=== PATIENT | male | born 1960 | race Caucasian/White ===

== ENCOUNTER 2018-01-15 12:02 | Emergency (ER) | payer SELFPAY ==
[2018-01-15] MEDS ORDERED: Sodium Chloride 0.9% 1,000 ML IV SCH (12:15)
--- NOTE | 2018-01-15 12:17 | ED PDOC ---
HPI:STROKE - Time Time: 12:12 - Historian Historian: Patient, Family - Chief Complaint Chief Complaint: Slurred speech - Onset Date: 01/09/18 Time: 12:00 - Timing Timing: Currently Symptomatic - Location Location: Speech - TPA Positive for Contraindication: Yes Reason tPA is not being Administered: out of window - Notes: Notes:: Pt. had shortness of breath for 7 days. Today he woke up at 430am with dizziness like the room spinning. His daughter called to get something and he was slurring his words so EMS called and brought to the ER. Pt. was in afib per EMS so cardizem given. NIHSS Stroke Scale - Date/Time Evaluation Performed Date Performed: 01/15/18 Time Performed: 12:12 When Was NIHSS Performed: Baseline - How Severe is the Stroke Level of Consciousness: 0=Alert LOC to Questions: 0=Both comments correct LOC to commands: 0=Obeys both correctly Best Gaze: 0=Normal Visual: 0=No visual loss Facial: 0=Normal Motor Arm - Left: 0=No drift Motor Arm - Right: 0=No drift Motor Leg - Left: 0=No drift Motor Leg - Right: 0=No drift Limb Ataxia: 0=Absent Sensory: 0=Normal Best Language: 0=No aphasia Dysarthia: 1=Mild to moderate slurring Extinction & Inattention (Neglect): 0=Normal, no object Score: 1 rTPA Inclusion/Exclusion - Refusal of Treatment Patient Refused Treatment: No - Inclusion Criteria for Altepase Patient is 18 years or Older: Yes The Clinical Diagnosis of Ischemic Stroke That is Causing a Potentially Disabling Neurological Deficit: No Time of Onset is Well Established to be Less Than 270 Minute Before Treatment Would Begin: No Risk/Benefit Discussed With Patient/Family Member Present: No Past Medical History Reviewed: Nursing Documentation, Vital Signs - Medical History PMH: No Chronic Diseases - Surgical History Surgical History: No Surg Hx - Family History Family History: States: Unknown Family Hx - Living Arrangements Living Arrangements: Alone - Home Medications Home Medications: Ambulatory Orders Medication Instructions Recorded No Known Home Med 01/15/18 - Allergies Allergies/Adverse Reactions: Allergies Allergy/AdvReac Type Severity Reaction Status Date / Time No Known Allergies Allergy Verified 01/15/18 12:07 Review of Systems ROS Statement: Except As Marked, All Systems Reviewed And Found Negative Respiratory: Positive for: Shortness of Breath Neurological: Positive for: Change in Speech, Dizziness Physical Exam - Reviewed Nursing Documentation Reviewed: Yes Vital Signs Reviewed: Yes - Physical Exam Appears: Positive for: Uncomfortable Head Exam: Positive for: ATRAUMATIC, NORMAL INSPECTION, NORMOCEPHALIC Skin: Positive for: Normal Color, Warm, DRY Eye Exam: Positive for: EOMI, Normal appearance, PERRL ENT: Positive for: Normal ENT Inspection. Negative for: Nasal Congestion, Pharyngeal Erythema Neck: Positive for: Normal, Painless ROM, Supple Cardiovascular/Chest: Positive for: Tachycardia Respiratory: Positive for: CNT, Normal Breath Sounds Gastrointestinal/Abdominal: Positive for: Normal Exam, Soft. Negative for: Tenderness Back: Positive for: Normal Inspection. Negative for: L CVA Tenderness, R CVA Tenderness Extremity: Positive for: Normal ROM. 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 Negative for: Motor/Sensory Deficits, Aphasia, Facial Droop - Laboratory Results Result Diagrams: 01/15/18 12:24 - ECG ECG: Positive for: Interpreted By Me, Viewed By Me Interpretation Of Abn EKG: afib 110 rate - Radiology X-Ray: Read By Radiologist X-Ray Interpretation: No Acute Disease - CT Scan/US head Other Rad Studies (CT/US): Read By Radiologist Other Rad Interpretation: no acute - Progress ED Course And Treament: 1212: Spoke with Dr. Johnson. Made aware of presentation, findings, and history. States is not a thrombolytic candidate. Wants ASA and plavix; no heparin. CTA head and neck. MRI. 1329: Pt. fails swallow based on slurred speech. Will hold plavix and give asa rectal. Dr Zhao aware and will admit. Pt. feels better. AAOx3. Spoke to Dr. Carcamo who will admit. - Critical Care Total Time (In Min): 30 Documented Critical Care: Time excludes all time spent performint seperately billable procedures Disposition - Clinical Impression Clinical Impression: CVA (cerebral vascular accident), Afib - Patient ED Disposition Is Patient to be Admitted: Yes Counseled Patient/Family Regarding: Studies Performed, Diagnosis - Disposition Disposition Time: 13:31 Condition: SERIOUS - Pt Status Changed To: Hospital Disposition Of: Inpatient - Admit Certification Admit to Inpatient:: After my assessment, the patient will require hospitalization for at least two midnights. This is because of the severity of symptoms shown, intensity of services needed, and/or the medical risk in this patient being treated as an outpatient. - POA Present On Arrival: None
[2018-01-15] MEDS ORDERED: Iodixanol 320 MG/ML 100 ML BOTTLE IV ONE (12:18)
[2018-01-15 12:30] LABS: BASO % 0.4 % (0.0-2.0); EOS % 0.1 % (0.0-4.0); HEMOGLOBIN 16.4 g/dL (12.0-18.0); LYMPH # 0.9 K/uL (1.0-4.3); LYMPH % 8.9 % (20.0-40.0); MEAN CELL VOLUME 89.1 fl (80.0-94.0); MEAN CORPUSCULAR HEMOGLOBIN 30.3 pg (27.0-31.0); MEAN CORPUSCULAR HGB CONC 34.1 g/dL (33.0-37.0); MEAN PLATELET VOLUME 10.2 fl (7.2-11.7); MONO # 0.6 K/uL (0.0-0.8); MONO % 5.7 % (0.0-10.0); NEUT # 8.6 K/uL (1.8-7.0); NEUT % 84.9 % (50.0-75.0); NRBC % 0.1 % (0.0-0.0); PLATELET COUNT 248 K/uL (130-400); RBC 5.41 Mil/uL (4.40-5.90); RED CELL DISTRIBUTION WIDTH 14.8 % (11.5-14.5); WHITE BLOOD COUNT 10.1 K/uL (4.8-10.8)
--- NOTE | 2018-01-15 12:36 | CT ---
PROCEDURE: CT HEAD WITHOUT CONTRAST. HISTORY: code stroke COMPARISON: None available. TECHNIQUE: Axial computed tomography images were obtained through the head/brain without intravenous contrast. Radiation dose: Total exam DLP = 1934.15 mGy-cm. This CT exam was performed using one or more of the following dose reduction techniques: Automated exposure control, adjustment of the mA and/or kV according to patient size, and/or use of iterative reconstruction technique. FINDINGS: Motion artifact exam. HEMORRHAGE: No intracranial hemorrhage. BRAIN: The lewis-white matter differentiation is well preserved. There is no mass effect or definitive edema pattern appreciated including the cortex. There is proportional expansion of the ventriculosulcal and cisternal spaces however in a pattern most compatible with diffuse cerebral atrophy. No suspicious extra-axial fluid collection is identified in the midline brain anatomy appears grossly nonfocal as imaged. VENTRICLES: Unremarkable. No hydrocephalus. CALVARIUM: No suspicious bony findings throughout the calvarium or skullbase although a small partially calcified lesion is seen the right parietal scalp suggests of a chronic sebaceous cyst. PARANASAL SINUSES: Unremarkable as visualized. No significant inflammatory changes. MASTOID AIR CELLS: Unremarkable as visualized. No inflammatory changes. OTHER FINDINGS: None. IMPRESSION: Limited age-related degenerative change are identified without definite acute intracranial findings by standard CT criteria. Limitations on this examination are motion artifacts despite multiple series attempting to overcome the problem. Follow-up CT or MRI are available as clinically warranted. Findings discussed with Dr. Moon with written down read back verification 01/15/2018 12:28 p.m..
[2018-01-15] MEDS ORDERED: Sodium Chloride 0.9% 50 ML IV ONE (12:43)
--- NOTE | 2018-01-15 13:16 | RAD ---
HISTORY: Code Stroke COMPARISON: No prior. FINDINGS: LUNGS: Prominence of the pulmonary vasculature may be secondary to AP technique and/or pulmonary vascular congestion. PLEURA: No significant pleural effusion identified, no pneumothorax apparent. CARDIOVASCULAR: Cardiomediastinal silhouette appears prominent ; however, this cannot be accurately assessed on an AP projection OSSEOUS STRUCTURES: Degenerative changes. VISUALIZED UPPER ABDOMEN: Normal. OTHER FINDINGS: None. IMPRESSION: No active disease.
[2018-01-15 13:20] LABS: ALB/GLOB RATIO 1.3 (1.0-2.1); ALBUMIN 3.7 g/dL (3.5-5.0); ALT/SGPT 55 U/L (21-72); AST/SGOT 24 U/L (17-59); BLOOD UREA NITROGEN 20 mg/dl (9-20); CALCIUM 8.6 mg/dL (8.4-10.2); GFR AFRICAN-AMERICAN > 60; GFR NON-AFRICAN AMERICAN > 60; HDL CHOLESTEROL 27 MG/DL (30-70); INR 1.1 (0.9-1.2); PARTIAL THROMBOPLASTIN TIME 27.1 Seconds (25.6-37.1); PROTHROMBIN TIME 12.7 Seconds (9.8-13.1)
[2018-01-15 13:31] LABS: LDL CHOLESTEROL 131 mg/dL (0-129)
[2018-01-15 13:34] LABS: B-TYPE NATRIURETIC PEPTIDE 2990 pg/ml (0-900)
[2018-01-15 14:20] VITALS: BMI 49.9
[2018-01-15 14:23] LABS: BANDS 1 % (0-2); BASOPHIL 1 % (0-2); EOSINOPHIL 1 % (0-7); LYMPHOCYTE 8 % (20-50); MONOCYTE 6 % (0-10); NEUTROPHIL 82 % (42-75); PLATELET ESTIMATE NORMAL (NORMAL); REACTIVE LYMPHOCYTES 1 % (0-0); TOTAL CELLS COUNTED 100
[2018-01-15 14:24] LABS: ANISOCYTOSIS SLIGHT; LARGE PLATELETS PRESENT; TEARDROP CELLS SLIGHT
--- NOTE | 2018-01-15 15:09 | CT ---
PROCEDURE: CT Angiography of the Brain and Neck. HISTORY: stroke COMPARISON: None available. TECHNIQUE: CT angiography of the intracranial and neck arteries was performed. Coronal and sagittal maximum intensity projection reformatted images were generated. Contrast Dose: Visipaque 320, 100 cc Radiation dose:Total exam DLP = 2346.06 mGy-cm. This CT exam was performed using one or more of the following dose reduction techniques: Automated exposure control, adjustment of the mA and/or kV according to patient size, and/or use of iterative reconstruction technique. FINDINGS: INTERNAL CEREBRAL ARTERIES: The skull base, petrous, cavernous and supraclinoid segments are bilaterally widely patent. Incidental note is made of trace gas presumably at the bilateral cavernous sinuses near their junction with the sella, the clinical significance of which is unclear. ANTERIOR CEREBRAL ARTERIES: Unremarkable. A1 and A2 segments are widely patent. Smaller distal branches unremarkable, as visualized. MIDDLE CEREBRAL ARTERIES: Unremarkable. M1 and M2 segments are widely patent. Perisylvian branches grossly symmetric. POSTERIOR CIRCULATION: Basilar Artery: Unremarkable. Distal Vertebral Arteries: Right vertebral artery which is nonetheless patent. The left vertebral artery is widely patent. . Posterior Cerebral Arteries: Unremarkable. Posterior Inferior Cerebellar Arteries: Unremarkable. NECK CTA: Common Carotid arteries: The bilateral common carotid appear widely patent from their origins to their bifurcations with no significant stenosis appreciated. No evidence to suggest common carotid artery dissection. Internal Carotid arteries: No significant stenosis is appreciated throughout the cervical internal carotid artery segments bilaterally and there is no evidence of dissection either. External Carotid arteries: Appear unremarkable bilaterally. Vertebral arteries: The bilateral vertebral arteries appear patent their origins to their junction with the basilar artery. No significant stenosis or definite pattern of dissection. The right vertebral artery appears hypoplastic. ANEURYSM/ VASCULAR MALFORMATIONS: None. OTHER FINDINGS: None. IMPRESSION: Nose occlusion or significant stenosis identified in CT Angiography of the Brain and Neck. No arteriovascular malformation or aneurysm identified either. Trace gas at the bilateral cavernous sinuses uncertain clinical significance/origin.
--- NOTE | 2018-01-15 15:23 | MRI ---
PROCEDURE: MRI BRAIN WITHOUT CONTRAST HISTORY: cva eval COMPARISON: None. TECHNIQUE: Multiplanar, multisequence MR images of the brain were obtained without intravenous contrast enhancement. FINDINGS: Unfortunate, the patient preferred to leave the MRI suite prior to completion of the examination and the overall examination is not complete. Gradient echo axial imaging (blood sensitive sequence) could not be performed as well as axial and sagittal T1 weighted imaging. HEMORRHAGE: None DWI: Restricted diffusion is identified and a large portion the anterior kayley which is unusual defined in only 1 slice the minimal similar changes are identified at the inferior kayley but the pattern suggests an acute subacute pontine infarction. Further clinical correlation is recommended. BRAIN PARENCHYMA: Limited periventricular white-matter change are appreciated with reflecting early chronic microangiopathy which appears age appropriate. There are no abnormal pontine signal changes appreciated corresponding to the area of infarction at this time seen in diffusion-weighted study. Nevertheless, the brain outside of the kayley appears normal and diffusion-weighted imaging. No mass effect or suspicious extra-axial collection appreciated. Sulci and cisterns are marginally expanded as well as the ventricular system compatible limited age-related diffuse cerebral atrophy. No hydrocephalus. VENTRICLES: As above. CRANIUM: Unremarkable calvarium and bony skull base. Sebaceous cyst is suggested at the right parietal scalp soft tissues. ORBITS: Grossly unremarkable. PARANASAL SINUSES/MASTOIDS: Clear VASCULAR SYSTEM: Skull base flow voids intact. OTHER FINDINGS: None. IMPRESSION: 1. Findings suspicious for a large anterior pontine infarction. No mass effect at this time. 2. Limited age-related neuro degenerative findings as discussed above. 3. Incomplete exam as the patient preferred not to stay in the MR suite until the end of the imaging protocol.
[2018-01-15 15:33] VITALS: RESP 20; O2SAT 97
[2018-01-15 17:41] VITALS: BP 135/100; PULSE 115; TEMP 98.4
--- NOTE | 2018-01-16 08:47 | CARD ---
APPROVED REPORT EKG Measurement Heart [id number] <Conclusion> Atrial fibrillation with rapid ventricular response Abnormal ECG
== END 2018-01-15 16:30 | disposition short-term general hospital (02) ==
LOC: H.ER 12:02 → UNDOADMIN 13:28 → H.ERHOLD 13:28 → UNDODISIN 16:30
DX: I65.1 Occlusion and stenosis of basilar artery (principal); I63.9 Cerebral infarction, unspecified; I48.91 Unspecified atrial fibrillation
CPT/HCPCS: 70450; 70496; 70498; 70551; 71045; 80053; 80061; 83036; 83880; 84484; 85025; 85610; 85730; 86850; 86900; 92526; 92610; 93005; 99285; G8996; G8997; J2405; J7030; Q9967